=== PATIENT | female | born 1980 ===

== ENCOUNTER 2021-11-28 08:04 | Outpatient (CLI) | payer OTHER, SELFPAY ==
--- NOTE | ~2021-11-28 | MM_ITS ---
EXAMINATION: MM screening traece BI w kayleigh HISTORY: Screening mammogram TECHNIQUE: Craniocaudal and mediolateral oblique 3-D tomosynthesis images were obtained and synthetic 2-D images were generated. Bilateral rotated lateral CC views. CAD analysis was submitted and interp reted. COMPARISON: No prior mammogram is available for comparison at this institution. BREAST PARENCHYMAL COMPOSITION: The breasts are heterogeneously dense, which may obscure small masses . FINDINGS: There is no evidence of suspicious mass, calcification, or architectural distortion to sugg est malignancy in either breast. There has been no suspicious interval change. IMPRESSION: 1. No mammographic evidence of malignancy. 2. Recommend routine screening mammography in one year. BI-RADS Category 1: Negative Reviewed, dictated and finalized at location A. [employer]
== END 2021-11-28 08:05 | disposition home or self-care (01) ==
LOC: CHSIMG 08:07
PROVIDERS: PCP Nurse Practitioner; Visit Provider Nurse Practitioner
DX: Z12.31 Encounter for screening mammogram for malignant neoplasm of breast (principal)
CPT/HCPCS: 77063; 77067

== ENCOUNTER 2022-03-26 10:26 | Emergency (ER) | payer OTHER, SELFPAY ==
[2022-03-26 10:37] VITALS: BP 99/66; PULSE 71; RESP 14; TEMP 36.7; O2SAT 99
[2022-03-26 10:53] VITALS: BP 99/66; PULSE 71; RESP 14; TEMP 36.7; O2SAT 99
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
[2022-03-26] MEDS: TETANUS,DIPHTHERIA,AC PERTUSSIS ADULT (0.5 ML) BOOSTRIX IM (11:45)
== END 2022-03-26 12:05 | disposition home or self-care (01) ==
PROVIDERS: Emergency Provider Registered Nurse; PCP Physician Assistant
DX: T22.211A Burn of second degree of right forearm, initial encounter (principal); X10.2XXA Contact with fats and cooking oils, initial encounter; Z23 Encounter for immunization; J45.909 Unspecified asthma, uncomplicated; I10 Essential (primary) hypertension
CPT/HCPCS: 16020; 90471; 90715; 99213; A9270; G0463

== ENCOUNTER 2024-05-06 10:52 | Emergency (ER) | payer OTHER, SELFPAY ==
[2024-05-06 11:00] VITALS: BP 119/69; PULSE 71; RESP 14; TEMP 36.9; O2SAT 100
--- NOTE | 2024-05-06 11:28 | ED.GENADULT ---
HPI - General Adult General Chief complaint: Skin/Abscess/Foreign Body Stated complaint: right side face swollen/can't swallow History of Present Illness HPI narrative: 44-year-old female presented for complaint of right-sided throat pain with painful swallow and right-sided facial swelling into the neck/jaw. Onset 4 days ago. Endorses excessive salivation. Yesterday she was seen by her PCP who prescribed Augmentin and advised massaging of the salivary gland to promote removal of a stone. She tested negative for strep as well. She states it does not feel like a stone. She had a stone about 2 years ago which required surgery. She denies associated difficulty maintaining secretions, shortness of breath, wheezing, nausea, vomiting, fevers or chills. She has not been able to eat today due to pain. She has taken ibuprofen without relief. Related Data Home Medications Medication Instructions Recorded Confirmed amlodipine 10 mg tablet 10 mg PO DAILY 03/26/22 05/06/24 atenolol 50 mg tablet 50 mg PO EVERY OTHER DAY 03/26/22 05/06/24 cetirizine 10 mg tablet 10 mg PO DAILY 03/26/22 05/06/24 escitalopram oxalate 10 mg tablet 10 mg PO DAILY 03/26/22 05/06/24 fluticasone propionate 230 1 puff inhalation DAILY 03/26/22 05/06/24 mcg-salmeterol 21 mcg/actuation HFA inhaler (Advair HFA) montelukast 10 mg tablet 10 mg PO DAILY 03/26/22 05/06/24 (Singulair) norethindrone 1 mg-ethinyl 1 tablet PO DAILY 03/26/22 03/26/22 estradiol 35 mcg tablet amoxicillin 875 mg-potassium 2 tablet PO BID 05/06/24 05/06/24 clavulanate 125 mg tablet Allergies Allergy/AdvReac Type Severity Reaction Status Date / Time bupropion Allergy Intermediate Hives / Verified 05/06/24 11:13 Red Face Review of Systems Review of Systems: CONSTITUTIONAL: Denies body aches, fever, chills, or sweats. EYES: Denies visual changes, redness, or discharge. ENT: reports throat pain, swelling Denies rhinorrhea, congestion, or otalgia. CARDIOVASCULAR: Denies chest pain, palpitations, or edema. RESPIRATORY: Denies dyspnea. GASTROINTESTINAL: Denies abdominal pain, nausea, vomiting, or diarrhea. SKIN: Denies rash, itching, or wounds. MUSCULOSKELETAL: Denies back pain, joint pain, or myalgia. NEUROLOGIC: Denies headache PMFSH Past Medical History Medical History Asthma Hypertension Surgical History Surgical History History of surgery on arm tendon repair S/P excision of lipoma neck Social History Social History Smoking status: Never smoker Alcohol intake: current Alcohol use details: rare social Substance use: never Living arrangements: with family Gender identity (if verbalized by the patient): Female Exam Narrative: GENERAL: well-appearing, no acute distress. EYES: conjunctivae clear ENT: Right preauricular swelling is mild extending to right submandibular area; no erythema. Mucous membranes moist. TM pearly stanton with normal light reflex bilaterally; no tragal tenderness. Oropharynx not erythematous without lesions. Tonsils 1+ and without exudate. No drooling, no hoarseness, no trismus, uvula midline. No tripod positioning, hot potato voice, or soft palate swelling. NECK: Supple. right submandibular node palpable, tender; no submandibular swelling or induration CHEST: Clear to auscultation, breath sounds equal. No respiratory distress, speaks in full sentences. HEART: Regular rate and rhythm. No murmur heard. SKIN: Warm, dry, no rash. NEURO: Alert and oriented x3. Course Course Emergency Course: Patient is aware of diagnosis, understands and agrees to treatment plan. Anticipatory guidance given. Patient agrees to follow-up as directed and is aware of reasons to seek care at the emergency department. Portions of this record may have been created with
[2024-05-06] MEDS: methylPREDNISolone SOD SUCC 125 MG VIAL IM (11:33)
[2024-05-06 12:04] LABS: EDMONONEGPOS Negative
== END 2024-05-06 12:39 | disposition home or self-care (01) ==
PROVIDERS: Emergency Provider Nurse Practitioner Family; PCP Physician Assistant
DX: R22.0 Localized swelling, mass and lump, head (principal); J45.909 Unspecified asthma, uncomplicated; I10 Essential (primary) hypertension
CPT/HCPCS: 36416; 86308; 96372; 99213; G0463; J2919

== ENCOUNTER 2024-05-07 08:41 | Outpatient (CLI) | payer OTHER, SELFPAY ==
--- NOTE | ~2024-05-07 | US_ITS ---
EXAMINATION: US soft tissue head and neck DATE: 05/07/2024 09:04 INDICATION: Localized swelling, mass and lump in the right submandibular region. TECHNIQUE: Multiple grayscale and Doppler ultrasound images of the head and neck were obtained. COMPARISON: None FINDINGS: The right submandibular gland measures 4.2 x 1.8 x 3.6 cm and demonstrates heterogeneous hy poechogenicity and a 4 mm calcification. IMPRESSION: 1. Enlarged and heterogeneous right submandibular gland with calcification, likely sialadenitis and s ialolithiasis. Reviewed, dictated and finalized at location A. IMPRESSION: 1. Enlarged and heterogeneous right submandibular gland with calcification, lik jason sialadenitis and sialolithiasis.
== END 2024-05-07 08:42 | disposition home or self-care (01) ==
LOC: CHSIMG 08:44
PROVIDERS: PCP Physician Assistant; Visit Provider Physician Assistant
DX: R22.0 Localized swelling, mass and lump, head (principal)
CPT/HCPCS: 76536

== ENCOUNTER 2024-06-16 08:25 | Outpatient (CLI) | payer OTHER, SELFPAY ==
--- NOTE | ~2024-06-16 | MM_ITS ---
EXAMINATION: MM screening tracee BI w kayleigh HISTORY: Screening mammogram TECHNIQUE: Craniocaudal and mediolateral oblique 3-D tomosynthesis images were obtained and synthetic 2-D images were generated. CAD analysis was submitted and interpreted. COMPARISON: 11/28/2021 BREAST PARENCHYMAL COMPOSITION:Dense: The breasts are heterogeneously dense, which may obscure small masses. FINDINGS: No suspicious mass, calcification, or architectural distortion are identified in either omkar ast to suggest malignancy. There has been no suspicious interval change. IMPRESSION: No mammographic evidence of malignancy. Recommend routine screening mammography in one year. BI-RADS Category 1: Negative Reviewed, dictated and finalized at location .
== END 2024-06-16 08:26 | disposition home or self-care (01) ==
LOC: CHSIMG 08:28
PROVIDERS: PCP Physician Assistant; Visit Provider Physician Assistant
DX: Z12.31 Encounter for screening mammogram for malignant neoplasm of breast (principal)
CPT/HCPCS: 77063; 77067